=== PATIENT | male | born 1975 | race Caucasian/White ===

== ENCOUNTER 2020-03-20 09:22 | Inpatient (IN) | payer OTHER ==
[~2020-03-20] VITALS: Ht 177.8 cm; Wt 75.1 kg
[~2020-03-20 09:22] MED LIST: ADMELOG100 UNIT/1 SQ; AMOX TR-K CLV1 EAC4 PO; ASPIRIN CHEWABL81 MG PO; BASAGLAR K100 UNIT/1 SC; CLARITIN10 MG PO; LEVEMIR FL100 UNIT/1 SC; LISINOPRIL20 MG PO; LISINOPRIL40 MG PO; NOVOLOG FL100 UNIT/1 SC; OMEPRAZOLE40 MG PO; VENTOLIN HFA 66.7 GM INH; VICTOZA 1818 MG/3 ML SC; ZOCOR20 MG PO
[2020-03-20 09:38] LABS: HEMOGLOBIN 12.3 gm/dl (14.0-17.5); RED BLOOD COUNT 4.47 M/UL (4.20-5.50); WHITE BLOOD COUNT 15.4 K/UL (4.5-11.0)
[2020-03-20 09:58] LABS: BUN/CREATININE RATIO 22 (0-10)
[2020-03-20 14:15] LABS: BUN/CREATININE RATIO 19 (0-10)
[2020-03-20 18:52] LABS: BUN/CREATININE RATIO 21 (0-10)
[2020-03-21 05:11] LABS: RED BLOOD COUNT 4.45 M/UL (4.20-5.50); WHITE BLOOD COUNT 12.8 K/UL (4.5-11.0)
[2020-03-21 05:30] LABS: BUN/CREATININE RATIO 20 (0-10)
--- NOTE | 2020-03-21 12:00 | NUR ---
PT DENIES USING DRUGS AT HOME. COMPLAINING OF PAIN I ASKED THE DOCTOR ABOUT GETTING HIM SOMETHING FOR PAIN MEDICINE. DR. NICK ORDERED LORATAB, WHICH WAS ADMINISTERED TO THE PATIENT. THE PATIENT STILL COMPLAINED OF PAIN. I CONTACTED DR. NICK AGAIN AND HE ORDERED HIM MORPHINE Q6HR. ONCE I GOT THE ORDER I TOOK IT INTO THE PATIENTS ROOM TO ADMINISTER IT. WHEN I TOLD HIM I HAD MORPHINE HE THEN WENT ON TO TELL ME THAT HE WAS ALLERGIC TO THE MORPHINE. SO, THEN I ASKED HIM WHAT IT DID TO HIM. HE TOLD ME THAT IT MADE HIM FEEL "WERID" BUT HE WE WILLING TO TAKE IT BECAUSE HIS FOOT WAS HURTING. PT TOLERATED IT WELL AND VITALS WERE GOOD.
--- NOTE | 2020-03-21 15:42 | NUR ---
PT INSISTED THAT HE GO TO THE BATHROOM HIM SELF AND NO ONE WATCH OR WALK HIM IN THERE. I THEN TOLD HIM THAT IF HE WAS TO HURT HIMSELF ON THE WAY IN THERE THAT HE WAS TAKING THAT INTO HIS OWN RESPONSIBILITY. HE THEN AGREED TO THAT AND I PLACE NON SKID SOCKS ON HIM AND ME AND THE TECH WALKED OUT AND LET HIM WALK TO THE BATHROOM.
--- NOTE | 2020-03-21 18:54 | NUR ---
CHANGED DRESSING ON LEFT FOOT.
[2020-03-22 05:52] LABS: BUN/CREATININE RATIO 20 (0-10)
[2020-03-23 05:28] LABS: HEMOGLOBIN 10.1 gm/dl (14.0-17.5); WHITE BLOOD COUNT 10.8 K/UL (4.5-11.0)
[2020-03-23 05:29] LABS: RED BLOOD COUNT 3.85 M/UL (4.20-5.50)
[2020-03-23 09:21] LABS: BUN/CREATININE RATIO 14 (0-10)
[2020-03-24 03:24] LABS: HEMOGLOBIN 10.1 gm/dl (14.0-17.5); RED BLOOD COUNT 3.72 M/UL (4.20-5.50)
[2020-03-24 03:52] LABS: BUN/CREATININE RATIO 13 (0-10)
[2020-03-25 05:00] LABS: HEMOGLOBIN 10.1 gm/dl (14.0-17.5); RED BLOOD COUNT 3.96 M/UL (4.20-5.50); WHITE BLOOD COUNT 10.6 K/UL (4.5-11.0)
[2020-03-25 05:19] LABS: BUN/CREATININE RATIO 16 (0-10)
--- NOTE | 2020-03-25 15:38 | NUR ---
1220 Patient returned to Room 5126 per PACU Staff. Awake, alert, denies pain/ discomfort at this time. Dressings dry & intact to bilateral feet. Respirations even/unlabored.
[2020-03-26 06:16] LABS: BUN/CREATININE RATIO 15 (0-10)
[2020-03-27 06:26] LABS: BUN/CREATININE RATIO 13 (0-10)
[2020-03-27 06:29] LABS: HEMOGLOBIN 9.3 gm/dl (14.0-17.5); WHITE BLOOD COUNT 11.2 K/UL (4.5-11.0)
[2020-03-27 06:34] LABS: RED BLOOD COUNT 3.5 M/UL (4.20-5.50)
[2020-03-28 06:52] LABS: BUN/CREATININE RATIO 11 (0-10)
[2020-03-29 06:08] LABS: BUN/CREATININE RATIO 12 (0-10)
[2020-03-29] MEDS ORDERED: LEVEMIR FL100 UNIT/1 SC (17:39)
[2020-03-29] MEDS ORDERED: LOPRESSOR 25 MG25 MG PO (17:39)
[2020-03-29] MEDS ORDERED: LISINOPRIL5 MG PO (17:39)
[2020-03-29] MEDS ORDERED: ASPIRIN EC81 MG PO (17:39)
[2020-04-01] MEDS ORDERED: LORTAB 7.5-3251 EACH PO (16:34)
[2020-04-01] MEDS ORDERED: VITAMIN C500 M4 PO (16:57)
[2020-04-01] MEDS ORDERED: NORCO 10-325 T1 EACH PO (16:57)
[2020-04-01] MEDS ORDERED: VANCOMYCIN1.25 GM/22 IV (16:58)
== END 2020-04-01 18:59 | DRG 853 ==
LOC: ER1 09:22 → M/S 12:11 → CDU 12:11 → PROG CARE 17:29 → M/S 03-22 10:32
PROVIDERS: Family Medicine; Internal Medicine Nephrology; Physician Assistant Medical; ADMIT Internal Medicine Infectious Disease
PROC: 0Y6N0Z9 Detachment at Left Foot, Partial 1st Ray, Open Approach (ICD-10-PCS; 2020-03-25)
PROC: 0Y6N0ZB Detachment at Left Foot, Partial 2nd Ray, Open Approach (ICD-10-PCS; 2020-03-25)
PROC: 0Y6N0ZC Detachment at Left Foot, Partial 3rd Ray, Open Approach (ICD-10-PCS; 2020-03-25)
PROC: 0Y6N0ZD Detachment at Left Foot, Partial 4th Ray, Open Approach (ICD-10-PCS; 2020-03-25)
PROC: 0Y6N0ZF Detachment at Left Foot, Partial 5th Ray, Open Approach (ICD-10-PCS; 2020-03-25)
PROC: B548ZZA Ultrasonography of Superior Vena Cava, Guidance (ICD-10-PCS; principal; 2020-03-26)
PROC: 02HV33Z Insertion of Infusion Device into Superior Vena Cava, Percutaneous Approach (ICD-10-PCS; principal; 2020-03-26)
DX: A41.02 Sepsis due to Methicillin resistant Staphylococcus aureus (principal); A48.0 Gas gangrene; L97.429 Non-pressure chronic ulcer of left heel and midfoot with unspecified severity; E87.1 Hypo-osmolality and hyponatremia; E11.52 Type 2 diabetes mellitus with diabetic peripheral angiopathy with gangrene; M86.172 Other acute osteomyelitis, left ankle and foot; F19.10 Other psychoactive substance abuse, uncomplicated; E11.621 Type 2 diabetes mellitus with foot ulcer; E11.65 Type 2 diabetes mellitus with hyperglycemia; E86.0 Dehydration; K21.9 Gastro-esophageal reflux disease without esophagitis; Z20.828 Contact with and (suspected) exposure to other viral communicable diseases; I10 Essential (primary) hypertension; F17.210 Nicotine dependence, cigarettes, uncomplicated; E11.69 Type 2 diabetes mellitus with other specified complication; K75.81 Nonalcoholic steatohepatitis (NASH); B95.62 Methicillin resistant Staphylococcus aureus infection as the cause of diseases classified elsewhere; Z79.899 Other long term (current) drug therapy; I25.2 Old myocardial infarction; Z79.82 Long term (current) use of aspirin; Z79.4 Long term (current) use of insulin
CPT/HCPCS: 36415; 36600; 71045; 73630; 73718; 80048; 80053; 80202; 80307; 81001; 82009; 82803; 82962; 83605; 83735; 85025; 85027; 85610; 86140; 87040; 87070; 87077; 87186; 87205; 93005; 93926; 96365; 96366; 96368; 96372; 96375; 97110-GP-CQ; 97116-GP-CQ; 97161; 97530-GP-CQ; 99285; J1650; J1885; J2001; J2250; J2270; J2405; J2543; J2704; J2795; J3010; J3370; J3411; J7030; J7070; J7120; Q4133; U0002

== ENCOUNTER → 2020-04-28 | Outpatient (CLI) | payer OTHER ==
[~2020-04-28] MED LIST changes: +ASPIRIN EC81 MG PO; +LISINOPRIL5 MG PO; +LOPRESSOR 25 MG25 MG PO; +LORTAB 7.5-3251 EACH PO; +NORCO 10-325 T1 EACH PO; +VANCOMYCIN1.25 GM/22 IV; +VITAMIN C500 M4 PO; +ZOFRAN ODT 4 MG4 MG PO
== END ==
LOC: KOH-I 13:43
DX: M86.9 Osteomyelitis, unspecified (principal); Z89.432 Acquired absence of left foot
CPT/HCPCS: 73630

== ENCOUNTER 2020-07-10 23:49 | Emergency (ER) | payer OTHER ==
[~2020-07-10 23:49] MED LIST changes: -ZOFRAN ODT 4 MG4 MG PO
[2020-07-11 00:34] LABS: HEMOGLOBIN 17.5 gm/dl (14.0-17.5); RED BLOOD COUNT 6.16 M/UL (4.20-5.50); WHITE BLOOD COUNT 18.9 K/UL (4.5-11.0)
[2020-07-11 00:44] LABS: BUN/CREATININE RATIO 16 (0-10)
[2020-07-11] MEDS ORDERED: ZOFRAN ODT 4 MG4 MG PO (08:52)
== END 2020-07-11 13:54 | disposition home or self-care (01) ==
LOC: ER1 23:49
PROVIDERS: Physician Assistant Medical
DX: E86.0 Dehydration (principal); R00.0 Tachycardia, unspecified; D72.829 Elevated white blood cell count, unspecified; E11.65 Type 2 diabetes mellitus with hyperglycemia; F12.10 Cannabis abuse, uncomplicated; F15.10 Other stimulant abuse, uncomplicated
CPT/HCPCS: 70450; 71045; 80053; 80307; 81001; 82009; 82803; 82962; 83605; 84484; 85025; 87040; 93005; 94760; 96365; 96375; 99285; J2405; J2550; J2765; J7030; Q9967

== ENCOUNTER 2020-09-08 19:09 | Emergency (ER) | payer OTHER ==
[~2020-09-08 19:09] MED LIST changes: +ZOFRAN ODT 4 MG4 MG PO
[2020-09-08 20:07] LABS: HEMOGLOBIN 8.5 gm/dl (14.0-17.5); WHITE BLOOD COUNT 16.8 K/UL (4.5-11.0)
[2020-09-08 20:32] LABS: BUN/CREATININE RATIO 25 (0-10)
[2020-09-09 22:43] LABS: ACINETOBACTER BAUMANNII Not Detected (Negative); CANDIDA ALBICANS Not Detected (Negative); CANDIDA KRUSEI Not Detected (Negative); CANDIDA TROPICALIS Not Detected (Negative); ENTEROCOCCUS Not Detected (Negative); ESCHERICHIA COLI Not Detected (Negative); HAEMOPHILUS INFLUENZAE Not Detected (Negative); KLEBSIELLA OXYTOCA Not Detected (Negative); KLEBSIELLA PNEUMONIAE Not Detected (Negative); KPC-CARBAPENEM-RESISTANCE GENE Not Detected (Negative); PROTEUS Not Detected (Negative); PSEUDOMONAS AERUGINOSA Not Detected (Negative); SERRATIA MARCESANS Not Detected (Negative); STREP AGALACTIAE (GROUP B) Not Detected (Negative); STREP PYOGENES (GROUP A) Not Detected (Negative); STREPTOCOCCUS Not Detected (Negative); vanA/B (VANCOMYCIN RESIST GENE Not Detected (Negative)
[2020-09-10 00:03] LABS: mecA (METHICILLIN RESIST GENE DETECTED (Negative)
[2020-09-10 00:04] LABS: STAPHYLOCOCCUS DETECTED (Negative); STAPHYLOCOCCUS AUREUS DETECTED (Negative)
== END 2020-09-09 01:35 | disposition short-term general hospital (02) ==
LOC: ER1 19:09
PROVIDERS: Emergency Medicine
DX: A41.9 Sepsis, unspecified organism (principal); R65.20 Severe sepsis without septic shock; J18.9 Pneumonia, unspecified organism; Z20.822 Contact with and (suspected) exposure to COVID-19; E10.9 Type 1 diabetes mellitus without complications
CPT/HCPCS: 0240U; 36600; 71045; 80053; 81001; 82009; 82550; 82553; 82803; 82962; 83605; 83735; 83874; 83880; 84100; 84484; 85025; 85610; 85730; 87040; 87077; 87086; 87150; 87186; 93005; 96365; 96375; 96376; 99285; J2270; J2405; J2543; J3370; J3475; J7030; Q9967

== ENCOUNTER 2021-01-07 18:51 | Inpatient (IN) | payer OTHER ==
[~2021-01-07] VITALS: Ht 177.8 cm; Wt 68.0 kg
[2021-01-07 19:33] LABS: HEMOGLOBIN 11.6 gm/dl (14.0-17.5); RED BLOOD COUNT 4.04 M/UL (4.20-5.50)
[2021-01-07 19:49] LABS: BUN/CREATININE RATIO 18 (0-10)
[2021-01-07 20:09] LABS: WHITE BLOOD COUNT 30.8 K/UL (4.5-11.0)
[2021-01-07 23:27] LABS: BUN/CREATININE RATIO 25 (0-10)
[2021-01-08 01:47] LABS: BUN/CREATININE RATIO 24 (0-10)
[2021-01-08] MEDS ORDERED: PREGABALIN100 MG PO (07:44)
[2021-01-08] MEDS ORDERED: HUMALOG100 UNIT/3 SC (07:44)
[2021-01-08] MEDS ORDERED: CLARITIN 10MG T10 MG PO (07:45)
[2021-01-08] MEDS ORDERED: ZESTRIL 40 MG T40 MG PO (07:45)
[2021-01-08] MEDS ORDERED: FERROUS SULFAT324 MG PO (07:45)
[2021-01-08] MEDS ORDERED: OMEPRAZOLE40 MG PO (07:46)
[2021-01-08] MEDS ORDERED: METOPROLOL SUCC25 MG PO (07:46)
[2021-01-08] MEDS ORDERED: SIMVASTATIN20 MG PO (07:47)
[2021-01-08] MEDS ORDERED: VICTOZA 1818 MG/3 ML SC (07:48)
[2021-01-08 09:30] LABS: BUN/CREATININE RATIO 22 (0-10)
[2021-01-09 05:16] LABS: HEMOGLOBIN 9.9 gm/dl (14.0-17.5); WHITE BLOOD COUNT 24.4 K/UL (4.5-11.0)
[2021-01-09 05:22] LABS: RED BLOOD COUNT 3.51 M/UL (4.20-5.50)
[2021-01-09 05:33] LABS: BUN/CREATININE RATIO 21 (0-10)
[2021-01-10 07:31] LABS: HEMOGLOBIN 8.7 gm/dl (14.0-17.5)
[2021-01-10 07:38] LABS: RED BLOOD COUNT 3.14 M/UL (4.20-5.50); WHITE BLOOD COUNT 16.1 K/UL (4.5-11.0)
[2021-01-10 08:22] LABS: BUN/CREATININE RATIO 17 (0-10)
--- NOTE | 2021-01-10 19:32 | NUR ---
DAYSHIFT NURSE NOTED THAT DRAIN WAS OUT WHEN DOING DRESSING CHNAGE, DR ESPINAL WAS NOTIFIED AND SAID "THAT'S OKAY, JUST DOCUMENT IT".
[2021-01-11 06:13] LABS: HEMOGLOBIN 9.7 gm/dl (14.0-17.5); WHITE BLOOD COUNT 18.1 K/UL (4.5-11.0)
[2021-01-11 06:37] LABS: RED BLOOD COUNT 3.49 M/UL (4.20-5.50)
[2021-01-11 06:45] LABS: BUN/CREATININE RATIO 21 (0-10)
--- NOTE | 2021-01-11 15:24 | NUR ---
18G X 8 CM MIDLINE INSERTED IN THE RIGHT BASILIC VEIN, USING ULTRASOUND GUIDANCE. ASPIRATES AND FLUSHES EASILY. STERILE DRESSING APPLIED AND DATED.
--- NOTE | 2021-01-11 16:29 | NUR ---
dressing change to right foot done per orders at this time
[2021-01-12 08:58] LABS: RED BLOOD COUNT 3.61 M/UL (4.20-5.50); WHITE BLOOD COUNT 17.2 K/UL (4.5-11.0)
[2021-01-12 09:22] LABS: BUN/CREATININE RATIO 16 (0-10)
[2021-01-12] MEDS ORDERED: PERCOCET 10-321 EACH PO (15:01)
[2021-01-13] MEDS ORDERED: MEROPENEM1 GM IV (13:19)
== END 2021-01-12 16:24 | disposition home or self-care (01) | DRG 853 ==
LOC: ER1 18:51 → PROG CARE 21:50 → CDU 21:50 → M/S 21:50 → PROG CARE 01-08 07:27 → M/S 01-09 18:06
PROVIDERS: Internal Medicine; Podiatrist Foot & Ankle Surgery; ADMIT Internal Medicine Infectious Disease
PROC: 0JBQ0ZZ Excision of Right Foot Subcutaneous Tissue and Fascia, Open Approach (ICD-10-PCS; 2021-01-08)
PROC: 0J9Q0ZZ Drainage of Right Foot Subcutaneous Tissue and Fascia, Open Approach (ICD-10-PCS; 2021-01-08)
PROC: 0Y6M0Z0 Detachment at Right Foot, Complete, Open Approach (ICD-10-PCS; principal; 2021-01-08 07:30)
DX: A41.9 Sepsis, unspecified organism (principal); M72.6 Necrotizing fasciitis; A48.0 Gas gangrene; E87.1 Hypo-osmolality and hyponatremia; E11.52 Type 2 diabetes mellitus with diabetic peripheral angiopathy with gangrene; M86.8X6 Other osteomyelitis, lower leg; Z20.822 Contact with and (suspected) exposure to COVID-19; E11.621 Type 2 diabetes mellitus with foot ulcer; R65.20 Severe sepsis without septic shock; E11.40 Type 2 diabetes mellitus with diabetic neuropathy, unspecified; E11.649 Type 2 diabetes mellitus with hypoglycemia without coma; E11.65 Type 2 diabetes mellitus with hyperglycemia; K76.0 Fatty (change of) liver, not elsewhere classified; I48.91 Unspecified atrial fibrillation; E11.69 Type 2 diabetes mellitus with other specified complication; F19.10 Other psychoactive substance abuse, uncomplicated; Z91.14 Patient's other noncompliance with medication regimen; Z79.82 Long term (current) use of aspirin; Z79.4 Long term (current) use of insulin; Z98.890 Other specified postprocedural states; Z79.899 Other long term (current) drug therapy
CPT/HCPCS: 36415; 71045; 73630; 80048; 80053; 80202; 81001; 82009; 82550; 82553; 82607; 82746; 82803; 82962; 83605; 83874; 83880; 84439; 84443; 84484; 85025; 85652; 86140; 87040; 87070; 87077; 87186; 87205; 96374; 96375; 99285; C1751; J1100; J1170; J1335; J1650; J2001; J2185; J2250; J2370; J2405; J2704; J2765; J2795; J3010; J3370; J7030; J7070; J7120; Q4133; U0002

== ENCOUNTER 2021-01-13 10:07 | Inpatient (IN) | payer OTHER ==
[~2021-01-13] VITALS: Ht 177.8 cm; Wt 70.3 kg
[~2021-01-13 10:07] MED LIST changes: -MEROPENEM1 GM IV
[2021-01-13] MEDS ORDERED: MEROPENEM1 GM IV (13:19)
[2021-01-13 14:51] LABS: HEMOGLOBIN 9.4 gm/dl (14.0-17.5); RED BLOOD COUNT 3.36 M/UL (4.20-5.50); WHITE BLOOD COUNT 17.3 K/UL (4.5-11.0)
[2021-01-13 15:20] LABS: BUN/CREATININE RATIO 17 (0-10)
--- NOTE | 2021-01-14 04:11 | NUR ---
PT BLOOD PRESSURE HAS BEEN ON LOW SIDE SINCE COMING BACK FROM I&D. 91/60,96/65,100/64. DILAUDID WAS HELD AND PT WAS GIVEN ORDERED PERCOCET. WENT AND CHECK ON PT WAS ASLEEP. WHEN ENTERING THE ROOM TO CHECK ON IV PUMP PT AWAKEN AND WANTED PAIN MEDICATION, BP STILL LOW AND PERCOCET WAS GIVEN APRROX 25 MINS EARLY.
[2021-01-14 07:56] LABS: HEMOGLOBIN 9.7 gm/dl (14.0-17.5); RED BLOOD COUNT 3.55 M/UL (4.20-5.50); WHITE BLOOD COUNT 15.5 K/UL (4.5-11.0)
[2021-01-14 09:07] LABS: BUN/CREATININE RATIO 13 (0-10)
[2021-01-15 06:45] LABS: HEMOGLOBIN 9.2 gm/dl (14.0-17.5); RED BLOOD COUNT 3.35 M/UL (4.20-5.50); WHITE BLOOD COUNT 12.4 K/UL (4.5-11.0)
[2021-01-15 07:09] LABS: BUN/CREATININE RATIO 13 (0-10)
[2021-01-16 06:41] LABS: HEMOGLOBIN 10.3 gm/dl (14.0-17.5); WHITE BLOOD COUNT 11.4 K/UL (4.5-11.0)
[2021-01-16 06:42] LABS: RED BLOOD COUNT 3.7 M/UL (4.20-5.50)
[2021-01-16 07:08] LABS: BUN/CREATININE RATIO 18 (0-10)
[2021-01-17 10:04] LABS: HEMOGLOBIN 10.9 gm/dl (14.0-17.5); RED BLOOD COUNT 3.88 M/UL (4.20-5.50)
[2021-01-17 10:33] LABS: BUN/CREATININE RATIO 18 (0-10)
[2021-01-18 07:35] LABS: WHITE BLOOD COUNT 11.5 K/UL (4.5-11.0)
[2021-01-18 07:37] LABS: HEMOGLOBIN 8.7 gm/dl (14.0-17.5); RED BLOOD COUNT 3.25 M/UL (4.20-5.50)
[2021-01-18 08:02] LABS: BUN/CREATININE RATIO 18 (0-10)
[2021-01-19 07:13] LABS: BUN/CREATININE RATIO 18 (0-10)
--- NOTE | 2021-01-20 06:47 | NUR ---
WOUND OF RIGHT FOOT TUNNELING 2 INCHES DEEP RIGHT ABOVE HEEL 4 INCHES WIDE AT THE MIDDLE OF THE FOOT WOUND IS 9 INCHES LONG.
[2021-01-20] MEDS ORDERED: LANTUS INS100 UTS/M1 SC (10:56)
== END 2021-01-20 17:41 | DRG 264 ==
LOC: MED SURG 4 10:07
PROVIDERS: Physician Assistant Medical; Podiatrist Foot & Ankle Surgery; ADMIT Internal Medicine
PROC: 0JBQ0ZZ Excision of Right Foot Subcutaneous Tissue and Fascia, Open Approach (ICD-10-PCS; principal; 2021-01-13 19:45)
DX: E11.52 Type 2 diabetes mellitus with diabetic peripheral angiopathy with gangrene (principal); A48.0 Gas gangrene; M72.6 Necrotizing fasciitis; M86.671 Other chronic osteomyelitis, right ankle and foot; I11.0 Hypertensive heart disease with heart failure; I48.91 Unspecified atrial fibrillation; E11.65 Type 2 diabetes mellitus with hyperglycemia; B96.5 Pseudomonas (aeruginosa) (mallei) (pseudomallei) as the cause of diseases classified elsewhere; D64.9 Anemia, unspecified; K59.00 Constipation, unspecified; J44.9 Chronic obstructive pulmonary disease, unspecified; K76.0 Fatty (change of) liver, not elsewhere classified; Z79.899 Other long term (current) drug therapy; Z79.82 Long term (current) use of aspirin; Z83.3 Family history of diabetes mellitus; Z86.19 Personal history of other infectious and parasitic diseases; Z89.431 Acquired absence of right foot; I25.2 Old myocardial infarction; Z87.891 Personal history of nicotine dependence
CPT/HCPCS: 36415; 80048; 80053; 82962; 83735; 85025; 85027; 87070; 87077; 87186; 87205; 97161; J1170; J1650; J2001; J2185; J2405; J2704; J2765; J2795; J3010; J3370; J7040; J7050; J7120; U0002

== ENCOUNTER → 2021-01-13 | Outpatient (CLI) | payer OTHER ==
[~2021-01-13] VITALS: Ht 177.8 cm; Wt 68.0 kg
[~2021-01-13] MED LIST changes: +CLARITIN 10MG T10 MG PO; +FERROUS SULFAT324 MG PO; +HUMALOG100 UNIT/3 SC; +MEROPENEM1 GM IV; +METOPROLOL SUCC25 MG PO; +PERCOCET 10-321 EACH PO; +PREGABALIN100 MG PO; +SIMVASTATIN20 MG PO; +ZESTRIL 40 MG T40 MG PO
== END ==
LOC: OPSV 07:11
DX: A48.0 Gas gangrene (principal); Z20.822 Contact with and (suspected) exposure to COVID-19; Z89.432 Acquired absence of left foot
CPT/HCPCS: 96365; J2185; U0002

== ENCOUNTER → 2021-03-01 | Outpatient (CLI) | payer OTHER ==
[~2021-03-01] MED LIST changes: +LANTUS INS100 UTS/M1 SC; +MEROPENEM1 GM IV
== END ==
LOC: WCC 07:22
DX: E11.621 Type 2 diabetes mellitus with foot ulcer (principal); E11.51 Type 2 diabetes mellitus with diabetic peripheral angiopathy without gangrene; L97.515 Non-pressure chronic ulcer of other part of right foot with muscle involvement without evidence of necrosis; J44.9 Chronic obstructive pulmonary disease, unspecified; I10 Essential (primary) hypertension; E11.40 Type 2 diabetes mellitus with diabetic neuropathy, unspecified; Z79.4 Long term (current) use of insulin; Z79.82 Long term (current) use of aspirin; T81.41XA Infection following a procedure, superficial incisional surgical site, initial encounter; T87.81 Dehiscence of amputation stump; M86.8X7 Other osteomyelitis, ankle and foot; M72.6 Necrotizing fasciitis; E11.65 Type 2 diabetes mellitus with hyperglycemia
CPT/HCPCS: 87070; 87077; 87205

== ENCOUNTER 2021-03-25 17:33 | Inpatient (IN) | payer OTHER ==
[~2021-03-25] VITALS: Ht 177.8 cm; Wt 76.4 kg
[~2021-03-25 17:33] MED LIST changes: -HUMALOG100 UNIT/3 SC; -ZESTRIL 40 MG T40 MG PO
[2021-03-25 18:33] LABS: HEMOGLOBIN 12.5 gm/dl (14.0-17.5); RED BLOOD COUNT 4.51 M/UL (4.20-5.50); WHITE BLOOD COUNT 9.5 K/UL (4.5-11.0)
[2021-03-25 18:52] LABS: BUN/CREATININE RATIO 39 (0-10)
[2021-03-26 06:34] LABS: HEMOGLOBIN 11.2 gm/dl (14.0-17.5); WHITE BLOOD COUNT 9.1 K/UL (4.5-11.0)
[2021-03-26 06:38] LABS: RED BLOOD COUNT 3.94 M/UL (4.20-5.50)
[2021-03-26 07:04] LABS: BUN/CREATININE RATIO 30 (0-10)
[2021-03-26] MEDS ORDERED: HUMALOG100 UNIT/3 SC (07:44)
[2021-03-26] MEDS ORDERED: ZESTRIL 40 MG T40 MG PO (07:45)
[2021-03-26] MEDS ORDERED: LANTUS SOL100 UNIT/1 SC (10:19)
[2021-03-26] MEDS ORDERED: ACETAMINOPHEN500 MG PO (14:15)
--- NOTE | 2021-03-26 15:55 | NUR ---
1237- NOTIFIED DR WHELAN OF PATIENT REQUEST FOR INCREASED PAIN MEDICATION. NEW ORDER NOTED.
[2021-03-27 05:07] LABS: HEMOGLOBIN 10.9 gm/dl (14.0-17.5); RED BLOOD COUNT 3.89 M/UL (4.20-5.50); WHITE BLOOD COUNT 7.9 K/UL (4.5-11.0)
[2021-03-27 05:45] LABS: BUN/CREATININE RATIO 21 (0-10)
[2021-03-28 07:44] LABS: BUN/CREATININE RATIO 16 (0-10)
[2021-03-28 07:52] LABS: HEMOGLOBIN 10.4 gm/dl (14.0-17.5); RED BLOOD COUNT 3.8 M/UL (4.20-5.50); WHITE BLOOD COUNT 6.5 K/UL (4.5-11.0)
[2021-03-29 07:12] LABS: HEMOGLOBIN 11.2 gm/dl (14.0-17.5); RED BLOOD COUNT 4.07 M/UL (4.20-5.50); WHITE BLOOD COUNT 5.8 K/UL (4.5-11.0)
[2021-03-29 07:43] LABS: BUN/CREATININE RATIO 18 (0-10)
--- NOTE | 2021-03-29 15:28 | NUR ---
1330- Dressing changed done at this time by dr dent.
[2021-03-30 06:10] LABS: BUN/CREATININE RATIO 15 (0-10)
[2021-03-30 06:16] LABS: HEMOGLOBIN 11.9 gm/dl (14.0-17.5); RED BLOOD COUNT 4.26 M/UL (4.20-5.50)
[2021-03-30 06:17] LABS: WHITE BLOOD COUNT 7.3 K/UL (4.5-11.0)
[2021-04-02 04:52] LABS: HEMOGLOBIN 10.3 gm/dl (14.0-17.5); WHITE BLOOD COUNT 7.1 K/UL (4.5-11.0)
[2021-04-02 05:15] LABS: RED BLOOD COUNT 3.69 M/UL (4.20-5.50)
[2021-04-02 05:34] LABS: BUN/CREATININE RATIO 15 (0-10)
[2021-04-02] MEDS ORDERED: INVANZ 1 GM VIAL1 GM IV (10:12)
[2021-04-02] MEDS ORDERED: LEVOFLOXACIN500 MG PO (10:12)
[2021-04-02] MEDS ORDERED: VANCOMYCIN HCL1 GM IV (10:12)
== END 2021-04-02 17:47 | disposition home or self-care (01) | DRG 863 ==
LOC: ER1 17:33 → MED SURG 4 21:02 → CDU 21:02 → MED SURG 4 23:23
PROVIDERS: Internal Medicine; Nurse Practitioner; Physician Assistant; ADMIT Internal Medicine
PROC: 02HV33Z Insertion of Infusion Device into Superior Vena Cava, Percutaneous Approach (ICD-10-PCS; principal; 2021-04-01)
DX: T81.49XA Infection following a procedure, other surgical site, initial encounter (principal); M86.671 Other chronic osteomyelitis, right ankle and foot; E11.69 Type 2 diabetes mellitus with other specified complication; Y83.8 Other surgical procedures as the cause of abnormal reaction of the patient, or of later complication, without mention of misadventure at the time of the procedure; I10 Essential (primary) hypertension; F17.200 Nicotine dependence, unspecified, uncomplicated; E11.621 Type 2 diabetes mellitus with foot ulcer; L97.519 Non-pressure chronic ulcer of other part of right foot with unspecified severity; I48.0 Paroxysmal atrial fibrillation; J44.9 Chronic obstructive pulmonary disease, unspecified; E11.65 Type 2 diabetes mellitus with hyperglycemia; E78.5 Hyperlipidemia, unspecified; Z91.14 Patient's other noncompliance with medication regimen; Z20.822 Contact with and (suspected) exposure to COVID-19; Z79.82 Long term (current) use of aspirin; Z79.899 Other long term (current) drug therapy; Z89.432 Acquired absence of left foot; Z89.431 Acquired absence of right foot; Z88.8 Allergy status to other drugs, medicaments and biological substances; E11.51 Type 2 diabetes mellitus with diabetic peripheral angiopathy without gangrene
CPT/HCPCS: 36415; 73718; 80048; 80053; 80202; 81001; 82009; 82803; 82962; 83036; 83605; 83735; 85025; 85652; 86140; 87040; 87070; 87077; 87186; 87205; 93926; 96374; 96375; 97161; 99284; C1751; J0692; J1335; J1650; J2185; J2405; J2543; J3370; J7030; J7050; J7070; U0002

== ENCOUNTER → 2021-04-12 | Outpatient (CLI) | payer OTHER ==
[~2021-04-12] MED LIST changes: +ACETAMINOPHEN500 MG PO; +HUMALOG100 UNIT/3 SC; +INVANZ 1 GM VIAL1 GM IV; +LANTUS SOL100 UNIT/1 SC; +LEVOFLOXACIN500 MG PO; +VANCOMYCIN HCL1 GM IV; +ZESTRIL 40 MG T40 MG PO
== END ==
LOC: OPSV 04-07 08:00
DX: M86.671 Other chronic osteomyelitis, right ankle and foot (principal)
CPT/HCPCS: G0463

== ENCOUNTER → 2021-04-20 | Outpatient (CLI) | payer OTHER ==
[2021-04-20 15:44] LABS: HEMOGLOBIN 13.9 gm/dl (14.0-17.5); RED BLOOD COUNT 4.84 M/UL (4.20-5.50); WHITE BLOOD COUNT 13.9 K/UL (4.5-11.0)
[2021-04-20 16:07] LABS: BUN/CREATININE RATIO 23 (0-10)
== END ==
LOC: OPSV 04-19 14:00
PROVIDERS: Internal Medicine Infectious Disease
DX: Z45.2 Encounter for adjustment and management of vascular access device (principal)
CPT/HCPCS: 80053; 80202; 85027; 85652; 86140

== ENCOUNTER 2021-09-09 09:40 | Emergency (ER) | payer OTHER ==
[2021-09-09 10:52] LABS: HEMOGLOBIN 12.7 gm/dl (14.0-17.5); RED BLOOD COUNT 4.47 M/UL (4.20-5.50); WHITE BLOOD COUNT 13.7 K/UL (4.5-11.0)
[2021-09-09 11:12] LABS: BUN/CREATININE RATIO 42 (0-10)
== END 2021-09-09 12:39 | disposition home or self-care (01) ==
LOC: ER1 09:40
PROVIDERS: Emergency Medicine
DX: R10.9 Unspecified abdominal pain (principal); E11.9 Type 2 diabetes mellitus without complications; I10 Essential (primary) hypertension; F17.200 Nicotine dependence, unspecified, uncomplicated
CPT/HCPCS: 80053; 81001; 82550; 82553; 82962; 83605; 83690; 84484; 85025; 87040; 93005; 96374; 96375; 99284; J1170; J2270; J2405